=== PATIENT | male | born 1995 ===

== ENCOUNTER 2016-09-17 11:27 | Emergency (ER) | payer OTHER, BC ==
[2016-09-17 11:46] VITALS: BMI 36.1
[2016-09-17 11:49] VITALS: TEMP 97.9
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
--- NOTE | 2016-09-17 13:19 | RAD ---
PROCEDURE: Cervical Spine Radiographs. HISTORY: Pain. COMPARISON: None. FINDINGS: BONES: Alignment maintained. No fracture. Dens Intact. DISC SPACES: Normal. SOFT TISSUES: Normal. No prevertebral soft tissue swelling. OTHER FINDINGS: None. IMPRESSION: Normal cervical spine radiographs
--- NOTE | 2016-09-17 13:20 | RAD ---
PROCEDURE: Right Wrist Radiographs. HISTORY: rt. wrist pain COMPARISON: None. FINDINGS: BONES: Normal. No fracture. JOINTS: Normal. No dislocation. SOFT TISSUES: Normal. OTHER FINDINGS: None. IMPRESSION: Normal right wrist radiographs.
[2016-09-17 13:55] VITALS: BP 118/82; PULSE 71; RESP 18; O2SAT 100
== END 2016-09-17 13:54 | disposition home or self-care (01) ==
LOC: ED 11:27 → MERGE 11:27 → ED 13:54
DX: M54.2 Cervicalgia (principal); M25.531 Pain in right wrist; V49.49XA Driver injured in collision with other motor vehicles in traffic accident, initial encounter; Y92.410 Unspecified street and highway as the place of occurrence of the external cause